=== PATIENT | female | born 2005 | race Two or more races ===

== ENCOUNTER 2024-02-03 13:11 | Emergency (ER) | payer OTHER ==
[~2024-02-03] VITALS: Ht 157.5 cm; Wt 70.3 kg
[2024-02-03] MEDS ORDERED: ORPHENADRINE CITRATE 30 MG/ML AMPUL IM SCH (14:17)
[2024-02-03] MEDS ORDERED: ORPHENADRINE CITRATE 30 MG/ML AMPUL ONE (14:20)
[2024-02-03 16:10] LABS: ERYTHROCYTE SEDIMENTATION RATE 27 mm/hr
[2024-02-03 16:14] LABS: HEMOGLOBIN 13.1 g/dL (12.0-15.00); MEAN CELL VOLUME 78.9 fL (80.00-100.00); MEAN CORPUSCULAR HEMOGLOBIN 27.2 pg (27.00-32.0); MEAN CORPUSCULAR HGB CONC 34.4 g/dl (32.0-36.0); PLATELET COUNT 282 K/uL (150-450); RED BLOOD COUNT 4.82 M/uL (4.00-6.00); RED CELL DISTRIBUTION WIDTH 13.8 % (11.5-14.5)
[2024-02-03 16:18] LABS: ALBUMIN 3.7 gm/dL (3.4-5.0); BILIRUBIN TOTAL 0.32 mg/dL (0.3-1.2); CALCIUM 9.1 mg/dL (8.5-10.1); CREATININE SERUM 0.66 mg/dL (0.55-1.02); GFR 115.37; GLOBULINA 4.2 G/DL (2.4-3.5); POTASSIUM 3.95 mEq/L (3.5-5.1); TOTAL PROTEIN 7.9 gm/dL (6.4-8.2)
[2024-02-03 16:19] LABS: C-REACTIVE PROTEIN 0.73 MG/DL (0.00-0.29)
[2024-02-03 16:20] LABS: PH,URINE 6.5 (5.0-8.0); URINE APPEARANCE Clear; URINE BILIRRUBIN Negative (NEGATIVE); URINE BLOOD Negative; URINE COLOR Yellow; URINE GLUCOSE Negative (NEGATIVE); URINE KETONE Negative (NEGATIVE); URINE LEUKOCYTE Trace; URINE NITRATE Negative; URINE PROTEIN Negative (NEGATIVE); URINE UROBILINOGEN 0.2 E.U./dl
[2024-02-03 16:24] LABS: URINE BACTERIA 903.2 uL (0.0-1933); URINE RBC 2.5 uL (0.0-20.8); URINE WBC 17.4 uL (0.0-23.2)
[2024-02-03 16:42] LABS: URINE CAST 0.61 uL (0.0-1.40)
== END 2024-02-03 22:50 | disposition home or self-care (01) ==
LOC: EMR PED 13:11 → ER 13:11 → EMR PED 14:02
PROVIDERS: Student in an Organized Health Care Education/Training Program
DX: M54.50 Low back pain, unspecified (principal); M51.36 Other intervertebral disc degeneration, lumbar region